=== PATIENT | male | born 1960 | race Caucasian/White ===

== ENCOUNTER 2016-11-01 19:24 | Emergency (ER) | payer MEDICAID ==
[~2016-11-01] VITALS: Ht 182.9 cm; Wt 109.1 kg
[2016-11-01 19:58] LABS: HEMATOCRIT 49.4 % (39.2-51.8); HEMOGLOBIN 16.9 g/dL (13.7-18.0); WHITE BLOOD COUNT 10.4 x10^3/uL (3.4-10)
[2016-11-01] MEDS ORDERED: MAALOX/HYOSCYAMINE/LIDOCAINE 45 ML BTL PO ONE (20:00)
[2016-11-01] MEDS ORDERED: ONDANSETRON 2MG/ML, 2ML IVPush ONE (20:00)
[2016-11-01] MEDS ORDERED: FAMOTIDINE 20 MG/2 ML IVP ONE (20:00)
[2016-11-01] MEDS ORDERED: SODIUM CHLORIDE FLUSH 10ML SYR IVF ONE (20:00)
[2016-11-01 20:10] LABS: ASPARTATE AMINO TRANSFERASE 13 U/L (15-37); BLOOD UREA NITROGEN 26 mg/dL (7-18)
[2016-11-01 20:14] LABS: IS PT STATUS REG ER OR PRE ER? YES
[2016-11-01] MEDS ORDERED: MELO7.5T31 PO (21:35)
[2016-11-01] MEDS ORDERED: TRAM50TA2 PO (21:35)
[2016-11-01] MEDS ORDERED: FAMOTIDINE 20 MG/2 ML ONE (22:01)
[2016-11-01] MEDS ORDERED: MAALOX/HYOSCYAMINE/LIDOCAINE 45 ML BTL ONE (22:01)
[2016-11-01] MEDS ORDERED: ONDANSETRON 2MG/ML, 2ML ONE (22:01)
[2016-11-01] MEDS ORDERED: OMNIPAQUE 350 MG/ML, 100ML BOTTLE ONE (22:47)
[2016-11-02 00:18] VITALS: BP 149/101
== END 2016-11-02 00:22 | disposition home or self-care (01) ==
LOC: ED 22:14
DX: R10.13 Epigastric pain (principal)
CPT/HCPCS: 36415; 74178; 76700; 80053; 83690; 84484; 85025; 86677; 93005; 96374; 96375; 99285; J2405; Q9967; S0028